=== PATIENT | female | born 1950 | race Caucasian/White ===

== ENCOUNTER 2017-02-15 09:37 | Emergency (ER) | payer MEDICARE ==
[~2017-02-15] VITALS: Ht 160 cm; Wt 92.9 kg
[2017-02-15 09:40] VITALS: BP 161/99; PULSE 79; RESP 16; TEMP 98.1
[2017-02-15] MEDS ORDERED: VITA250C3 CHEW (10:04)
[2017-02-15] MEDS ORDERED: ROSU20 PO (10:04)
[2017-02-15] MEDS ORDERED: MONT10TA2 PO (10:04)
[2017-02-15] MEDS ORDERED: TELM40 PO (10:04)
[2017-02-15] MEDS ORDERED: PREV30CA11 PO (10:04)
[2017-02-15] MEDS ORDERED: CELE20TA PO (10:04)
[2017-02-15] MEDS ORDERED: FLUTI44I INH (10:04)
[2017-02-15] MEDS ORDERED: VITACAP7 PO (10:04)
[2017-02-15] MEDS ORDERED: CETI10CH CHEW (10:04)
[2017-02-15] MEDS ORDERED: ASPI81CH CHEW (10:04)
[2017-02-15] MEDS ORDERED: CRANCAP2 PO (10:04)
[2017-02-15] MEDS ORDERED: CHOL20005 PO (10:04)
--- NOTE | 2017-02-15 10:10 | PD ---
HPI Chief Complaint: ENT Complaint Time Seen by Provider: 10:06 Travel History International Travel<30 days: No Contact w/Intl Traveler<30days: No Traveled to known affect area: No History of Present Illness HPI 66-year-old female with history of hypertension, asthma, presents to the ER today because she states that she is staying at a local hotel when she started feeling like her throat was swollen and she is having a sore throat. She states that this has happened in the past to her and it was thought that she had an allergic reaction and she was given a steroid. She states that she has discomfort with swallowing but is able to have coffee this morning and feels she would be able to swallow if needed. She reports no drooling, shortness of breath, rash, or any other symptoms. She is not been having a fevers, coughing , or other issues. Modifying Factors: None Associated Signs & Symptoms: Throat soreness and swelling Risk Factors: Previous history of same PFSH Past Medical History Hx Anticoagulant Therapy: Yes (asa 81mg) Asthma: Yes Cardiac Catheterization: Yes (2007) Cardiovascular Problems: Yes (htn on med) High Cholesterol: Yes Diminished Hearing: No Hypertension: Yes Respiratory: Yes (asthma) Tetanus Vaccination: > 5 Years Influenza Vaccination: Yes ?: Not Past Surgical History Genitourinary Surgery: Yes (BLADDER SLING 2012) Hysterectomy: Yes Oral Surgery: Yes (DENTAL IMPLANT 2011) Other Surgery: Yes (RIGHT RENAL ARTERY ANGIOPLASTY 1997, BREAST REDUCTION 2004) Social History Alcohol Use: Yes (OCCASIONALLY; 1 MIXED DRINK 02/14/17) Tobacco Use: No Substance Use: No Allergies-Medications (Allergen,Severity, Reaction): Coded Allergies: Betadine (Verified Allergy, Severe, blisters on skin, 02/15/17) Shellfish (Verified Allergy, Severe, blisters on skin and hives, 02/15/17) Reported Meds & Prescriptions Reported Meds & Active Scripts Active Reported Cetirizine (Cetirizine HCl) 10 Mg Chew 10 Mg CHEW DAILY Vitamin C (Ascorbic Acid) 250 Mg Chew 250 Mg CHEW DAILY B Complex (B-Complex Vitamins) 1 Cap 1 Cap PO DAILY D3 Super Strength (Cholecalciferol) 2,000 Unit Cap 2,000 Units PO DAILY Cranberry Urinary Comfort (Vitamins C & E) 1 Cap 1 Cap PO DAILY Aspirin 81 Mg Chew 81 Mg CHEW DAILY Flovent Hfa 10.6 GM Inh (Fluticasone Propionate) 44 Mcg/Act Inh 2 Puff INH BID Use daily at the same time. Singulair (Montelukast Sodium) 10 Mg Tab 10 Mg PO HS Prevacid (Lansoprazole) 30 Mg Capdr 30 Mg PO DAILY Micardis (Telmisartan) 40 Mg Tab 40 Mg PO DAILY Celexa (Citalopram Hydrobromide) 20 Mg Tab 20 Mg PO DAILY Crestor (Rosuvastatin Calcium) 20 Mg Tab 20 Mg PO DAILY Review of Systems Except as stated in HPI: all other systems reviewed are Neg Physical Exam Narrative GENERAL: Well-developed elderly white female patient currently in mild distress. Awake and oriented 3. SKIN: Focused skin assessment warm/dry. HEAD: Atraumatic. Normocephalic. EYES: Pupils equal and round. No scleral icterus. No injection or drainage. ENT: Mucosa pink and moist. There is notable uvula erythema and edema with no exudates or palatal, or tonsillar deviation. Tonsillar pillars are symmetrical. Airway patent. Nasal turbinates appear normal without nasal blood , purulent drainage. NECK: Trachea midline. No JVD. No masses. No significant tender lymphadenopathy. CARDIOVASCULAR: Regular rate and rhythm. No murmur appreciated. RESPIRATORY: No accessory muscle use. Clear to auscultation. Breath sounds equal bilaterally. GASTROINTESTINAL: Abdomen soft, non-tender, nondistended. Hepatic and splenic margins not palpable. MUSCULOSKELETAL: No obvious deformities. No clubbing. No cyanosis. No edema. NEUROLOGICAL: Awake and alert. No obvious cranial nerve deficits. Motor grossly within normal limits. Normal speech. PSYCHIATRIC: Appropriate mood and affect; insight and judgment normal. Data Data Last Documented VS Vital Signs Date Time Temp Pulse Resp B/P Pulse Ox O2 Delivery O2 Flow Rate FiO2 02/15/17 11:36 88 16 163/63 96 Room Air 02/15/17 09:40 98.1 Orders Complete Blood Count With Diff (02/15/17 10:06) Basic Metabolic Panel (Bmp) (02/15/17 10:06) Group A Rapid Strep Screen (02/15/17 10:06) Iv Access Insert/Monitor (02/15/17 10:06) Methylprednisolone So Succ Inj (Solumedr (02/15/17 10:15) Diphenhydramine Inj (Benadryl Inj) (02/15/17 10:15) Strep Culture (Group A) (02/15/17 10:10) Labs Laboratory Tests Test 02/15/17 10:15 White Blood Count 8.3 TH/MM3 Red Blood Count 4.46 MIL/MM3 Hemoglobin 13.0 GM/DL Hematocrit 37.1 % Mean Corpuscular Volume 83.0 FL Mean Corpuscular Hemoglobin 29.0 PG Mean Corpuscular Hemoglobin 35.0 % Concent Red Cell Distribution Width 13.6 % Platelet Count 207 TH/MM3 Mean Platelet Volume 9.4 FL Neutrophils (%) (Auto) 71.7 % Lymphocytes (%) (Auto) 20.0 % Monocytes (%) (Auto) 6.1 % Eosinophils (%) (Auto) 1.3 % Basophils (%) (Auto) 0.9 % Neutrophils # (Auto) 5.9 TH/MM3 Lymphocytes # (Auto) 1.7 TH/MM3 Monocytes # (Auto) 0.5 TH/MM3 Eosinophils # (Auto) 0.1 TH/MM3 Basophils # (Auto) 0.1 TH/MM3 CBC Comment DIFF FINAL Differential Comment Sodium Level 143 MEQ/L Potassium Level 4.0 MEQ/L Chloride Level 110 MEQ/L Carbon Dioxide Level 25.3 MEQ/L Anion Gap 8 MEQ/L Blood Urea Nitrogen 15 MG/DL Creatinine 0.66 MG/DL Estimat Glomerular Filtration 89 ML/MIN Rate Random Glucose 121 MG/DL Calcium Level 8.9 MG/DL MDM Medical Decision Making Medical Screen Exam Complete: Yes Emergency Medical Condition: Yes Medical Record Reviewed: Yes Interpretation(s) Laboratory Tests Test 02/15/17 10:15 Neutrophils (%) (Auto) 71.7 % (16.0-70.0) Chloride Level 110 MEQ/L (98-107) Random Glucose 121 MG/DL (74-106) Differential Diagnosis Throat swelling and painstrep pharyngitis versus allergic reaction/angioedema Narrative Course Rapid strep is negative. Patient was given Benadryl and Solu-Medrol in the ER and was observed in the ER for over 2 hours. On reevaluation after 2 hours, she reports that she feels like her throat is better, states that she feels like she can swallow without issues now. Patient appears to be a fairly reliable historian a reliable patient. She has had similar issues in the past however was never diagnosed with angioedema, never received a official diagnosis of this issue, however never had any airway compromise. At this point , my plan would be to release the patient with follow-up to primary care physician with further Medrol Dosepak and Benadryl. Return for any worsening in difficulty swallowing, further swelling, or new symptoms as needed. The plan has discussed with her and she states understanding. Diagnosis Primary Impression: Uvular edema Med/Other Pt SpecificInfo: Prescription(s) given Scripts Epinephrine Inj (Epipen 2-Julian Inj)0.3 Mg/0.3 Ml Pfpen0.3 Mg SQ ONCE PRN ( ALLERGIC REACTION) #1 PACK Ref 0 Prov:Alison Aburto MD 02/15/17 Diphenhydramine HCl (Benadryl Allergy)25 Mg Cap25 Mg PO Q6HR PRN (ALLERGIC REACTION) #20 Prov:Alison Aburto MD 02/15/17 Methylprednisolone Dosepak (Medrol Dosepak)4 Mg Dspk4 Mg PO DIRECTED #1 DSPK Ref 0 Per Pharmacist direction Prov:Alison Aburto MD 02/15/17 Disposition: 01 DISCHARGE HOME Condition: Stable Alison Aburto MD Feb 15, 2017 10:10
[2017-02-15] MEDS ORDERED: diphenhydrAMINE HCL 50 MG/ML VIAL IV PUSH ONE (10:15)
[2017-02-15] MEDS ORDERED: methylPREDNISolone SOD SUCC 125 MG/2 ML VIAL IV PUSH ONE (10:15)
[2017-02-15 10:34] LABS: AUTOMATED NEUTROPHIL # 5.9 TH/MM3 (1.8-7.7); BASOPHIL # 0.1 TH/MM3 (0-0.2); BASOPHIL % 0.9 % (0.0-2.0); EOSINOPHIL # 0.1 TH/MM3 (0-0.4); EOSINOPHIL % 1.3 % (0.0-4.0); HEMATOCRIT 37.1 % (35.0-46.0); HEMO FLAGS DIFF FINAL; LYMPHOCYTE # 1.7 TH/MM3 (1.0-4.8); MONO % 6.1 % (0.0-8.0); NEUT % 71.7 % (16.0-70.0); PLATELET COUNT 207 TH/MM3 (150-450); RED BLOOD COUNT 4.46 MIL/MM3 (4.00-5.30); RED CELL DISTRIBUTION WIDTH 13.6 % (11.6-17.2); WHITE BLOOD COUNT 8.3 TH/MM3 (4.0-11.0)
[2017-02-15 10:44] LABS: BICARBONATE 25.3 MEQ/L (21.0-32.0)
[2017-02-15 11:36] VITALS: BP 163/63; PULSE 88; RESP 16; O2SAT 96
[2017-02-15] MEDS ORDERED: EPIP0.3I SQ (11:58)
[2017-02-15] MEDS ORDERED: BENA25CA4 PO (11:58)
[2017-02-15] MEDS ORDERED: MEDR4PAK PO (11:58)
== END 2017-02-15 12:24 | disposition home or self-care (01) ==
LOC: PHEFT 09:37
DX: J39.8 Other specified diseases of upper respiratory tract (principal); J02.9 Acute pharyngitis, unspecified; I10 Essential (primary) hypertension; J45.909 Unspecified asthma, uncomplicated; E78.00 Pure hypercholesterolemia, unspecified; Z79.01 Long term (current) use of anticoagulants
CPT/HCPCS: 80048; 85025; 87081; 87880; 96374; 96375; 99284; J1200; J2930